=== PATIENT | female | born 1965 | race Caucasian/White ===

== ENCOUNTER 2019-07-15 16:20 | Inpatient (IN) | payer MEDICARE ==
[~2019-07-15] VITALS: Ht 157.5 cm; Wt 93.2 kg
[~2019-07-15 16:20] MED LIST: ACETAMINOPHEN325 M1 PO; ADIPEX-P37.5 M1 PO; AMBIEN 10 MG TA10 MG PO; AMBIEN PO; ATIVAN1 MG PO; CALCIUM CARBO1000 MG PO; CLONAZEPAM; CYCLOBENZAPRINE; DESYREL50 MG PO; DIAZEPAM10 M1 PO; DOXYCYCLINE 10100 M1 PO; FIORICET; FIORICET 50-321 EACH PO; FIORICET PO; FLEXERIL; FLEXERIL PO; FROVA2.5 MG PO; FUROSEMIDE; GABAPENTIN100 MG PO; GEODON60 MG; GEODON60 MG PO; IBUPROFEN; LAMICTAL 25 MG25 M1 PO; LASIX 40 MG TAB40 M1; LEVAQ; LEXAPRO 10 MG T10 MG; MEDROL DOSPAK21 TA1 PO; MEDROL DOSPAK21 TAB PO; MIRALAX255 GM PO; MOM PO; NORCO 5-325 TA1 EACH PO; NORFLEX100 MG PO; PHENERGAN; PHENERGAN 25 MG25 M1; PHENERGAN 25 MG25 M1 PO; PHENERGAN PO; PREDNISONE50 MG PO; PRILOSEC 20 MG20 MG PO; PRILOSEC40 MG PO; PROCTOCREAM-HC30 G1 RECTAL; PROZAC; SEROQUEL 100 M100 M1 PO; TIZANIDINE HCL 22 M1; TIZANIDINE HCL 22 M1 PO; TOPAMAX100 MG PO; TOPAMAX200 MG PO; TOPAMAX25 M1; TOPAMAX25 M1 PO; TORADOL; ULTRAM 50MG TAB50 MG PO; VALIUM10 MG; VIIBRYD10 MG PO; VIIBRYD20 MG; VIIBRYD20 MG PO; WATER PILL; XANAX 0.5 MG0.5 M1; XANAX 0.5 MG0.5 M1 PO; XANAX 0.5 MG0.5 MG PO; ZOFRAN; ZOFRAN 4 MG ORAL4 M1 DIS; ZOFRAN4 MG PO; ZOFRAN8 MG PO; ZOLOFT25 MG PO; [UNRECOGNIZED DRUG - OTHER]; [UNRECOGNIZED DRUG - REMARK]; [UNRECOGNIZED DRUG - REMARK]; amoxicillin
[2019-07-15 16:26] VITALS: BP 123/81
[2019-07-15] MEDS ORDERED: PERCOCET 10-321 EAC1 PO (16:34)
[2019-07-15 17:19] LABS: ABSOLUTE EOSINOPHILS 0.1 thou/uL (0.0-0.7); ABSOLUTE LYMPHOCYTES 2.4 thou/uL (0.8-5.3); ABSOLUTE MONOCYTES 0.3 thou/uL (0.0-1.2); ABSOLUTE NEUTROPHILS 2.6 thou/uL (1.6-8.1); BASOPHILS 0.3 %; EOSINOPHILS 1.4 %; HEMATOCRIT 40.4 % (37.0-47.0); HEMOGLOBIN 13.7 gm/dL (12.0-15.0); LYMPHOCYTES 44.3 %; MCH 30.1 pg (26.0-34.0); MCHC 33.9 g/dL (28.0-37.0); MONOCYTES 6.2 %; MPV 8.6 fl. (7.2-11.1); NUCLEATED RBCS 0 /100WBC; PLATELET COUNT* 293 thou/uL (150-400); POLYS 47.8 %; RBC 4.54 mil/uL (4.20-5.00); RDW-CV 12.7 % (10.5-14.5); WBC 5.4 thou/uL (4.0-11.0)
[2019-07-15 17:24] LABS: URINE BILIRUBIN NEGATIVE (Negative); URINE BLOOD NEGATIVE (Negative); URINE CLARITY CLEAR; URINE COLOR YELLOW; URINE GLUCOSE-RANDOM NEGATIVE (Negative); URINE KETONES NEGATIVE (Negative); URINE LEUKOCYTES-REFLEX TRACE (Negative); URINE NITRITE-REFLEX NEGATIVE (Negative); URINE PROTEIN NEGATIVE (Negative); URINE UROBILINOGEN 0.2 E.U./dl (0.2-1.0)
[2019-07-15 17:29] LABS: APTT 27.1 Seconds (25.0-31.3); CALCIUM 8.5 mg/dL (8.5-10.1); POTASSIUM 3.4 mmol/L (3.5-5.1); PROTIME 10.6 Seconds (9.20-11.50)
[2019-07-15 17:34] LABS: BACTERIA-REFLEX 1-9 Few /HPF (None Seen); CASTS None Seen /LPF (None Seen); MUCUS None Seen strn/LPF (None Seen); SQUAMOUS 4-10 Moderate /LPF (0-3); URINE WBC-REFLEX 0-5 Rare /HPF (0-5)
[2019-07-15 17:35] LABS: CRYSTALS None Seen /LPF (None Seen); URINE RBC None Seen /HPF (0-2)
[2019-07-15 17:39] LABS: ALBUMIN 3.7 g/dL (3.4-5.0); MAGNESIUM 1.8 mg/dL (1.8-2.4); TOTAL BILIRUBIN 0.3 mg/dL (<0.1-1.0); TOTAL PROTEIN 7.4 g/dL (6.4-8.2)
[2019-07-15 17:43] LABS: INFLUENZA A ANTIGEN Negative (Negative); INFLUENZA B ANTIGEN Negative (Negative)
[2019-07-15 19:50] VITALS: BP 137/83
--- NOTE | 2019-07-15 20:18 | NUR ---
ABISAI CALLED AND SAID ROOM WAS CLEAN AND READY. PT BEING DENT BACK TO FLOOR.
[2019-07-15 20:36] VITALS: BP 121/60
[2019-07-15] MEDS ORDERED: PROMETH-CODEIN 65 ML PO (21:12)
--- NOTE | 2019-07-16 01:03 | NUR ---
CONTACTED PHYSICIAN FOR CLARIFICATION OF ORDER FOR NORMAL SALINE, FOR CREATINIE LEVEL OF 6.6, AT 250ML/HR PRN PER SEPSIS PROTOCOL. CLARIFICATION GIVEN TO ADMINISTER NORMAL SALINE AT 250ML/HR, TOTAL OF 2,722 ML PER SEPSIS PROTOCOL.
[2019-07-16 05:52] LABS: ABSOLUTE LYMPHOCYTES 0.7 thou/uL (0.8-5.3); ABSOLUTE NEUTROPHILS 2.5 thou/uL (1.6-8.1); BASOPHILS 0.4 %; HEMATOCRIT 39.2 % (37.0-47.0); HEMOGLOBIN 13.3 gm/dL (12.0-15.0); LYMPHOCYTES 22.3 %; MCH 30.4 pg (26.0-34.0); MCHC 33.9 g/dL (28.0-37.0); MCV 89.6 fL (80.0-100.0); MPV 9.2 fl. (7.2-11.1); NUCLEATED RBCS 0 /100WBC; PLATELET COUNT* 281 thou/uL (150-400); POLYS 76.3 %; RBC 4.37 mil/uL (4.20-5.00); WBC 3.3 thou/uL (4.0-11.0)
[2019-07-16 06:02] LABS: CREATININE 0.9 mg/dL (0.6-1.3); POTASSIUM 3.5 mmol/L (3.5-5.1)
[2019-07-16 08:00] VITALS: BP 153/71
--- NOTE | 2019-07-16 08:11 | NUR ---
ASSUMED CARE OF PT 07/15/19 AT APPROX 1930, PT A&OX4, PT ON 2L NC, UP AD TORRIE, PAIN AND COUGH MEDS REQUESTED AND GIVEN ORDER, VSS. AT APPROX 0014 PHYSICIAN NOTIFIED OF PT LACTIC LEVEL 6.6, AT 0023 CALL BACK RECEIVED, ORDER GIVEN FOR NS 30ML/KG TO BE INFUSED AT 250ML/HR, FLUIDS STARTED ORDERED. REPORT GIVEN TO [facility] DAY SHIFT NURSE 07/16/19 AT APPROX 0715.
--- NOTE | 2019-07-16 10:11 | EKG ---
[place] [address] ELECTROCARDIOGRAM REPORT Name: MONTRELL PRICE Room: [address] ADM IN M.R.#: [id number] Admission: 07/15/19 Attend Phys: Cain Jordan Discharge: Date of : 63 Report #: [id number] THIS REPORT FOR: //name// [facility] ED Test Date: 2019-07-15 Test Time: 16:28:57 Pat Name: MONTRELL PRICE Department: Room: [facility] Gender: F Construction Stonemason: MARC : 1965 Requested By: Javier Egan Order Number: [id number] MD: Saeed Victor Measurements Intervals [place] Rate: 96 P: 36 NH: 131 QRS: -16 QRSD: 96 T: 1 QT: 354 QTc: 448 Interpretive Statements Sinus rhythm Borderline left axis deviation Compared to ECG 10/11/2011 10:43:14 No significant changes Electronically Signed On 07-16-2019 10:10:33 STRAIGHT CUTTER MACHINE by Saeed Victor [email or web address] <ELECTRONICALLY SIGNED> By: Saeed Victor MD, [facility] 07/16/19 1010 1628 1628 Saeed Victor MD, [facility] /EPI
--- NOTE | 2019-07-16 11:38 | NUR ---
MET WITH PT AND FAMILY AT BEDSIDE TO DISCUSS HOME SITUATION/DC PLANNING. PT LIVES WITH SPOUSE, IS INDEPENDENT WITH ADLS. HAS WALKER, CANE AND NEBULIZER BUT STATES DOESN'T USE THEM. SHE DENIES HAVING HH IN PAST BUT HAS BEEN TO 'SEVERAL REHABS' IN [place]. PT DOESN'T HAVE A PCP, STATES WAS 'DISCHARGED' FROM GROUP. GAVE LIST OF PCP IN [place] AND ICE PACK FOR PT'S 'HEADACHE.' PT PLANS TO RETURN HOME AT DC, DENIES NEEDS
--- NOTE | 2019-07-16 12:58 | NUR ---
Nutrition: Pt admitted with COPD exac. Seen for nsg risk 2 pts. She stated she had not really lost wt, just fluctuating in her usual range. 205# currently, and she stated that is typical wt for her. Regular diet. Alb 3.7. She stated she was eating normally. Wanted another diet Dr Clemons, which RD obtained for her. Low risk.
[2019-07-16 16:00] VITALS: BP 157/69
--- NOTE | 2019-07-16 16:20 | NUR ---
RECEIVED REPORT FROM PERFORMANCE IMPROVEMENT CONSULTANT AND ASSUMED CARE OF PT.VSS.PAIN MANAGED WELL WITH PO MEDICATIONS.IV ANTIBIOTICS GIVEN.PT HAS HAD NAUSEA WITH NO VOMITTING -MEDICATIONS GIVEN.LACTIC ACID WAS CRITICALLY HIGH-DOCTOR NOTIFIED WITH NEW ORDERS RECEIVED.PT HAS BEEN IRRITABLE AT TIMES THROUGHOUT THE SHIFT BUT WAS APOLOGETIC AFTERWARDS .PT INFORMED OF PLAN OF CARE AND COMMUNICATES UNDERSTANDING.HOURLY ROUNDING COMPLETED FOR PT SAFETY.CALL LIGHT AND PERSONAL BELONGINGS WITHIN REACH.WILL CONTINUE TO MONITOR FOR DURATION OF SHIFT.
--- NOTE | 2019-07-16 18:05 | NUR ---
PT C/O CHEST PAIN @ 1719.VS TAKEN @ 158/105,HR 114, TEMP 97.7, 96% O2 SAT.EKG COLLECTED AND REVIEWED BY DR. LAGUAN.DOCTOR NOTIFIED WITH NEW ORDERS RECEIVED.PT GIVEN ANXIETY MEDICATIONS AND GI COCKTAIL.PT STATES PAIN IS NOT BAD AND WAS RESTING ON LEFT SIDE IN BED.WILL CONTINUE TO MONITOR FUR DURATION OF SHIFT.
[2019-07-16 20:00] VITALS: BP 136/75
--- NOTE | 2019-07-16 20:36 | NUR ---
INITAL ASSESMENT COMPLETED AT 1999. PT GIVEN PRN FIORECET AND SCHEDULED OXYCODONE FOR MIGRAINE PAIN. ALL LIGHTS TURNED OFF PER PT REQUEST. PT GIVEN HS MEDS CRUSHED IN CHOCOLATE PUDDING. PT INQUIRED WHEN NEXT DOSE OF PAIN MEDICINE WAS DUE. INFORMED PT THAT OXYCODONE IS SCHEDULED AT 0700 AND FIORACET WAS EVERY 4 HOURS NEEDED. PT SAID SHE NEEDED OXYCODONE MORE OFTEN. INFORMED PT THAT SHE WAS RECIEVING LAST DOSE OF OXYCODONE FOR THE DAY AND DR SORIANO REFUSED TO ALLOW MORE UNTIL 0700. PT IRRITABLE AND ANGRY BUT COOPERATIVE AT THAT TIME. AT 2130 PT RANG LIGHT, TECH ENTERED ROOM TO ASSIST PT. PT BEGAN CURSING AT HER USING EXTREMELY PROFANE LANGUAGE. TECH INFORMED ME OF EVENT. ENTERED PT'S ROOM TO OFFER ASSISTANCE. IV PUMP ALARMING. PT ANGRY AND SAID SHE WAS BEING BLAMED FOR IV PUMP MAKING NOISE. IV PUMP SHUT OFF. OFFERED TO START IV IN DIFFERENT AREA TO AVOID ACCLUDING PUMP. PT AGREED AFTER MOUTHING MULTIPLE PROFANITIES.
[2019-07-17] VITALS: BP 123/54
[2019-07-17 04:00] VITALS: BP 132/69
[2019-07-17 08:00] VITALS: BP 139/74
[2019-07-17] MEDS ORDERED: BUTALB-APAP-CA1 EACH PO (10:52)
[2019-07-17] MEDS ORDERED: PROMETH-CODEIN 65 ML PO (10:52)
[2019-07-17] MEDS ORDERED: MUCINEX600 MG PO (10:52)
[2019-07-17] MEDS ORDERED: ATIVAN1 M1 PO (10:52)
--- NOTE | 2019-07-17 13:39 | EKG ---
[place] [address] ELECTROCARDIOGRAM REPORT Name: DEEMONTRELL DRUMMOND Room: [address] ADM IN M.R.#: [id number] Admission: 07/15/19 Attend Phys: Cain Jordan Discharge: Date of : 63 Report #: [id number] THIS REPORT FOR: //name// [facility] Test Date: 2019-07-16 Test Time: 17:36:00 Pat Name: MONTRELL PRICE Department: Room: [address] Gender: F Polisher Hand: : 1965 Requested By: Cain Avilez Order Number: [id number] Reading MD: Saeed Victor Measurements Intervals [place] Rate: 91 P: 46 NH: 131 QRS: -23 QRSD: 102 T: -10 QT: 360 QTc: 443 Interpretive Statements Sinus rhythm Atrial premature complex Borderline left axis deviation Borderline T abnormalities, inferior leads Compared to ECG 07/15/2019 16:28:57 Atrial premature complex(es) now present Electronically Signed On 07-17-2019 13:38:21 BOX PRINTER by Saeed Victor [email or web address] <ELECTRONICALLY SIGNED> By: Saeed Victor MD, [facility] 07/17/19 1338 1736 1736 Saeed Victor MD, [facility] /EPI
--- NOTE | 2019-07-17 14:51 | NUR ---
PT.NOW ASKING FOR DR.S LIST NEAR [facility]. CM LOOKED ON INTERNET AND GAVE HER 10 NAME AND NUMBERS TO DRS NEAR [facility]. SHE SAID SHE WANTED ME TO RECOMMEND ONE. TOLD HER WE HAVE NO CONTACT WITH THE DR.S SO I WOULD HAVE ANY IDEA OF WHAT THEY ARE LIKE. TOLD HER TO ASK HER FRIENDS FOR RECOMMENDATIONS OR GO ON WEBSITE OF AND READ REVIEWS. PT.TO DISCHARGE TODAY. DENIED ANY OTHER NEEDS.
[2019-07-17 16:00] VITALS: BP 131/61
[2019-07-17 16:27] VITALS: BP 139/74
[2019-07-17] MEDS ORDERED: PROAIR HFA8.5 GM INH (16:27)
--- NOTE | 2019-07-17 17:32 | NUR ---
PATIENT GIVEN DISCHARGE INSTRUCTIONS, ALL QUESTIONS ANSWERED. D/C TO HOME WITH . ALL BELONGINGS, PRESCRIPTIONS AND D/C PAPERWORK SENT WITH PATIENT. ALL QUESTIONS ANSWERED
[2019-07-17 17:39] VITALS: BP 139/74
== END 2019-07-17 17:43 | disposition home or self-care (01) | DRG 190 ==
LOC: M.ERS 16:20 → M.TBA-ER 18:33 → M.ORTHSURG 18:33
PROVIDERS: Family Medicine; ADMIT Family Medicine
DX: J44.0 Chronic obstructive pulmonary disease with (acute) lower respiratory infection (principal); J80 Acute respiratory distress syndrome; E87.2 Acidosis; J20.8 Acute bronchitis due to other specified organisms; J44.1 Chronic obstructive pulmonary disease with (acute) exacerbation; G43.909 Migraine, unspecified, not intractable, without status migrainosus; F32.9 Major depressive disorder, single episode, unspecified; Z82.49 Family history of ischemic heart disease and other diseases of the circulatory system; Z88.8 Allergy status to other drugs, medicaments and biological substances; Z98.84 Bariatric surgery status; Z79.899 Other long term (current) drug therapy